=== PATIENT | male | born 1965 | race Caucasian/White ===

== ENCOUNTER 2020-08-22 19:57 | Emergency (ER) | payer BC, SELFPAY ==
--- NOTE | ~2020-08-22 | XR_ITS ---
EXAMINATION: XR CHEST CLINICAL INFORMATION: Right lower rib pain COMPARISON: None TECHNIQUE: 2 views of the chest were obtained. FINDINGS: Lung volumes are symmetric. No focal consolidation is seen. No evidence of pneumothorax, pleural effusion, or pulmonary edema. The cardiomediastinal contour is unremarkable. No acute osseous findings are seen. XR/XR chest 2V IMPRESSION: No acute findings.
[2020-08-22 20:09] VITALS: BP 144/95; BP 190/80; PULSE 100; PULSE 88; RESP 18; TEMP 36.8; O2SAT 98; BMI 36.0
--- NOTE | 2020-08-22 20:10 | MHC.RECOVSUP ---
? Reason for consult recovery support o Current location: [facility] o Identified substance use concern: Alcohol - Support ? Intervention: ? Additional information: Patient refused any services
[2020-08-22 22:55] VITALS: BP 150/78; PULSE 84; RESP 16; TEMP 36.1; O2SAT 95
[2020-08-22] MEDS: Acetaminophen 325 MG TABLET 650 MG PO (23:11)
--- NOTE | 2020-08-22 23:54 | ED.ALCOHOL ---
HPI - Alcohol General Chief Complaint: ETOH/Substance Use Stated Complaint: ETOH Time Seen by Provider: 08/22/20 20:03 Source: patient and family (Sister) Mode of arrival: EMS History of Present Illness HPI narrative: 55M presents via EMS with anxiety, nausea and vomiting that has since resolved. He denies suicidal or homicidal ideations, fevers, chills, diarrhea, or symptoms. Related Data Allergies Allergy/AdvReac Type Severity Reaction Status Date / Time No Known Allergies Allergy Unverified 08/22/20 23:35 Review of Systems Review of Systems: Pertinent positives and negatives as stated in HPI 10 point review of systems is otherwise negative. PMFSH Past Medical History Source: nursing notes reviewed Social History Social History Advance Directives: No Advance Directives Information Provided: No Physical Exam Vital Signs: Vital Signs: Last Vital Signs Temp 96.9 F 08/22/20 22:55 Pulse 84 08/22/20 22:55 Resp 16 08/22/20 22:55 BP 150/78 H 08/22/20 22:55 Pulse Ox 95 08/22/20 22:55 Body Mass Index 36.0 VITAL SIGNS: Reviewed. GENERAL: Well developed, well nourished, in no acute distress. HEAD: Normocephalic/atraumatic EYES: PERRLA, EOMI OROPHARYNX: no oral lesions noted, posterior pharynx clear NECK: Supple, no adenopathy LUNGS: Normal breath sounds. No adventitious sounds or accessory muscle use. SpO2<95> CARDIOVASCULAR: Regular rate and rhythm without noted murmurs ABDOMEN: Soft, non-tender, non-distended with bowel sounds. Course Course Course Narrative: 55M with history and clinical presentation c/w request for alcohol detox and otherwise no SI/HI but has some depression for which is actively seeking help and has appointments set up for the upcoming week. Attempts were made to get into a detox center, but patient was intoxicated in presentation. His sister is present, actively involved in assisting the patient. Review of all investigations negative for acute findings other than evidence of patient's chronic alcohol intake on the liver as his abdominal exam is otherwise benign and he is afebrile. All results discussed with the sister and the patient and he was discharged into her care for safe transport and plans to assist in phone calls in the morning to other detox facilities. MDM - Alcohol Lab Data Result diagrams: 08/22/20 23:56 08/22/20 23:56 Labs: Lab Results 08/22/20 08/22/20 08/22/20 Range/Units 23:56 23:56 23:56 WBC 7.4 (4.8-10.8) X10*3/uL RBC 4.57 L (4.60-5.80) X10*6/uL Hgb 15.8 (14.0-18.0) g/dl Hct 45.0 (42-52) % MCV 98.5 H (80-98) fL MCH 34.6 H (27.0-33.0) pg MCHC 35.1 (31.0-36.0) g/dl RDW 13.5 (11.0-16.0) % Plt Count 85 L (160-400) X10*3/uL MPV 10.4 (9.4-12.4) fL Immature Gran % (Auto) 0.1 (0.0-0.4) % Neut % (Auto) 68.5 (45-73) % Lymph % (Auto) 24.2 (20-40) % [place] % (Auto) 6.3 (2-11) % Eos % (Auto) 0.1 (0-4) % Baso % (Auto) 0.8 (0-2) % Lymph # (Auto) 1.8 (1.2-4.9) X10*3/uL [place] # (Auto) 0.5 (0.1-1.2) X10*3/uL Eos # (Auto) 0.0 (0.0-0.4) X10*3/uL Baso # (Auto) 0.1 (0.0-0.2) X10*3/uL Abs Immat Gran (auto) 0.01 (0.00-0.03) X10*3/uL Absolute Neuts (auto) 5.1 (2.0-8.3) X10*3/uL Absolute Nucleated RBC 0.000 (0.0-0.012) X10*3/uL Nucleated RBC % (auto) 0.0 (0.0-0.2) /100WBC Sodium 138 (135-145) mmol/L Potassium 3.5 (3.3-5.1) mmol/L Chloride 101 (96-108) mmol/L Carbon Dioxide 21 L (22-29) mmol/L Anion Gap 20 (12-20) BUN 15 (9-16) mg/dL Creatinine 0.84 (0.5-1.4) mg/dL Estim Creat Clear Calc 105.9 Estimated GFR > 60 Random Glucose 106 (60-115) mg/dL Calcium 8.4 (8.4-10.2) mg/dL Total Bilirubin 1.6 H (0.0-1.0) mg/dL AST 153 H (5-37) U/L ALT 64 H (0-40) U/L Alkaline Phosphatase 154 H (39-117) U/L Total Protein 7.4 (6.5-8.0) g/dL Albumin 3.9 (3.5-5.0) g/dL Lipase 59 (8-78) U/L Ethyl Alcohol 277 mg/dL Discharge Plan Discharge Clinical Impression: Alcoholic intoxication, Alcohol dependence Patient Disposition: Home, Self-Care Instructions: Alcohol Intoxication (ED), Alcohol Dependence (ED) Additional Instructions: Resume all home medications as prescribed. Return to the ER for worsening symptoms. Referrals: Emre Reeves MD [Primary Care Provider] - 2 days Interventions: ED Discharge Assessment Last Done: 08/23/20 01:49 Discharge Date/Time: 08/23/20 01:50
[2020-08-23 00:03] LABS: MANUAL DIFF FLAG NO
[2020-08-23 00:04] LABS: Basophils Absolute Auto 0.1 X10*3/uL (0.0-0.2); Basophils Percent Auto 0.8 % (0-2); Eosinophils Percent Auto 0.1 % (0-4); Hemoglobin 15.8 g/dl (14.0-18.0); Imm Gran Abs Auto 0.01 X10*3/uL (0.00-0.03); Imm Gran Pct Auto 0.1 % (0.0-0.4); Lymphocytes Absolute Auto 1.8 X10*3/uL (1.2-4.9); Lymphocytes Percent Auto 24.2 % (20-40); Mean Corpuscular HGB Conc 35.1 g/dl (31.0-36.0); Mean Corpuscular Hemoglobin 34.6 pg (27.0-33.0); Mean Corpuscular Volume 98.5 fL (80-98); Mean Platelet Volume 10.4 fL (9.4-12.4); Monocytes Absolute Auto 0.5 X10*3/uL (0.1-1.2); Monocytes Percent Auto 6.3 % (2-11); Neutrophils Absolute Auto 5.1 X10*3/uL (2.0-8.3); Neutrophils Percent Auto 68.5 % (45-73); Red Blood Count 4.57 X10*6/uL (4.60-5.80); Red Cell Distribution Width 13.5 % (11.0-16.0); White Blood Count 7.4 X10*3/uL (4.8-10.8)
[2020-08-23 00:09] LABS: Platelet Count 85 X10*3/uL (160-400)
[2020-08-23 00:24] LABS: Ethanol 277 mg/dL
[2020-08-23 00:38] LABS: Alanine Aminotransferase 64 U/L (0-40); Albumin Level 3.9 g/dL (3.5-5.0); Alkaline Phosphatase 154 U/L (39-117); Anion Gap 20 (12-20); Aspartate Amino Transferase 153 U/L (5-37); Bilirubin Total 1.6 mg/dL (0.0-1.0); Blood Urea Nitrogen 15 mg/dL (9-16); Calcium 8.4 mg/dL (8.4-10.2); Carbon Dioxide 21 mmol/L (22-29); Chloride 101 mmol/L (96-108); Creatinine Clr Calc Pharmacy 105.9; Estimated Glomerular Filt Rate > 60; Glucose Random 106 mg/dL (60-115); Lipase 59 U/L (8-78); Potassium 3.5 mmol/L (3.3-5.1); Sodium 138 mmol/L (135-145); Total Protein 7.4 g/dL (6.5-8.0)
== END 2020-08-23 01:50 | disposition home or self-care (01) ==
PROVIDERS: Emergency Provider Student in an Organized Health Care Education/Training Program; PCP Internal Medicine
DX: F10.220 Alcohol dependence with intoxication, uncomplicated (principal); Y90.8 Blood alcohol level of 240 mg/100 ml or more
CPT/HCPCS: 36415; 71046; 80053; 82077; 83690; 85025; 99283